=== PATIENT | female | born 1970 | race Two or more races ===

== ENCOUNTER 2016-09-26 10:05 | Emergency (ER) | payer SELFPAY ==
[2016-09-26 10:14] VITALS: BP 170/90; BMI 34.3
--- NOTE | 2016-09-26 10:20 | DR.NAUSEAF ---
HPI - Time Seen Time seen: 10:18 - Primary Care Physician Primary Care Physician: NFD - Complaints Chief Complaint Doctors Comments: Daughter reports that patient was in her usual state of health on last night except for being upset. They went to [place] yesterday to pick a car and enroute home had some prolems with one of the cars. Daughter reports that on last night patient became dizzy. This AM awakened with episode of vomiting and nausea. Chief Complaint:: PT C/O N/V AND MIGRAINE .. THAT STARTED THIS AM .. PT HAS VOMITTED UP 20 ML OF YELLOWISH VOMIT IT TRIAGE ... Self Treatment fo Chief Complaint: PT TAKES PHENERGAN BUT, SHE DOES WHENS SHE HAS MIGRAINES - Source History Provided: Patient - Mode of Arrival Mode of Arrival: Ambulatory - Timing Onset of Chief Complaint: 09/26/16 PMH - PMH Past Medical History: No Past Surgical History: No Surgical History: [employer] Surgery - Family History History of Family Medical Conditions: No - Social History Does patient currently use any type of tobacco product: No Have you used tobacco products in the last 12 months: No Type of Tobacco Use: None Does any household member use tobacco: No Alcohol Use: None Do you use any recreational Drugs:: No Lives With: Family Lives Where: Home - infectious screening In the last 2 months have you had wt loss of >10#?: NO Have you had fever, night sweats or hemotysis?: No Have you traveled outside the country in the last 6 months?: No Isolation: Standard ROS - Review of Systems Eyes: No Symptoms Reported ENTM: No Symptoms Reported Respiratoy: No Symptoms Reported Cardiovascular: No Symptoms Reported Genitourinary: No Symptoms Reported Neurological: No Symptoms Reported Musculoskeletal: No Symptoms Reported Integumentary: No Symptoms Reported Hematologic/Lymphatic: No Symptoms Reported Endocrine: No Symptoms Reported Psychiatric: No Symptoms Reported All Other Systems: Reviewed and Negative PE - Vital Signs Vitals: Temperature 170.9 F Pulse Rate 62 Respiratory Rate 18 Blood Pressure 170/90 O2 Sat by Pulse Oximetry 99 - General General Appearance: Lethargic - Head Head Exam: Normal Inspection - Eyes Eye exam: Normal Appearance, PERRL, EOMI - ENT ENT Exam: Normal Exam, Normal Oropharynx - Neck Neck Exam: Normal Inspection - Chest Chest Inspection: Normal Inspection - Respiratory Respiratory Exam: Normal Lung Sounds Bilat Respiratory Exam: Bilateral Clear to Auscultation - Cardiovascular Cardiovascular Exam: Regular Rate - Abdominal Exam Abdominal Exam: Normal Inspection Abdominal Tenderness: negative: RUQ, RLQ, LUQ, LLQ, Epigastrium, Suprapubic, Diffuse, Mild, Moderate, Severe, Other - Rectal Rectal Exam: Deferred - External Exam: Female: Deferred : Speculum Exam (Female): Deferred : Bimanual Exam (female): Deferred - Extremities Extremities Exam: Normal Inspection - Back Back Exam: Normal Inspection - Neurologic Neurological Exam: Alert, Oriented X3, CN II-XII Intact - Psychiatric Psychiatric Exam: Normal Affect, Normal Mood - Skin Skin Exam: Warm, Dry, Intact ROR - Labs Reviewed Result Diagrams: 09/26/16 10:35 09/26/16 10:35 Laboratory: WBC 8.0 X10^3/uL (3.6-10.0) 09/26/16 10:35 RBC 4.37 X10^6/uL (3.5-5.4) 09/26/16 10:35 Hgb 12.0 g/dL (12.0-16.0) 09/26/16 10:35 Hct 36.8 % (36.0-47.0) 09/26/16 10:35 MCV 84.3 fL (80.0-100.0) 09/26/16 10:35 MCH 27.6 pg (27.0-34.0) 09/26/16 10:35 MCHC 32.7 g/dL (33.0-35.0) L 09/26/16 10:35 RDW 14.2 % (11.6-16.5) 09/26/16 10:35 Plt Count 194 X10^3/uL (150.0-450.0) 09/26/16 10:35 MPV 10.6 fL (7.4-11.0) 09/26/16 10:35 Neut % 75.6 % (42.0-75.0) H 09/26/16 10:35 Lymph % 19.0 % (21.0-51.0) L 09/26/16 10:35 [place] % 4.5 % (0.0-13.0) 09/26/16 10:35 Eos % 0.5 % (0.9-2.9) L 09/26/16 10:35 Baso % 0.4 % (0.2-1.0) 09/26/16 10:35 Neut # 6.0 x10^3/uL (2.2-4.8) H 09/26/16 10:35 Lymph # 1.5 X10^3/uL (1.3-2.9) 09/26/16 10:35 [place] # 0.4 x10^3/uL (0.3-0.8) 09/26/16 10:35 Eos # 0.0 x10^3/uL (0.0-0.2) 09/26/16 10:35 Baso # 0.0 X10^3/uL (0.0-0.1) 09/26/16 10:35 Absolute Nucleated RBC 0.0 /100WBC 09/26/16 10:35 Sodium 136 mmol/L (136-145) 09/26/16 10:35 Corrected Sodium 137 mmol/L (136-145) 09/26/16 10:35 Potassium 3.9 mmol/L (3.5-5.1) 09/26/16 10:35 Chloride 105 mmol/L (98-107) 09/26/16 10:35 Carbon Dioxide 24.2 mmol/L (21-32) 09/26/16 10:35 BUN 9 mg/dL (7-18) 09/26/16 10:35 Creatinine 0.64 mg/dL (0.55-1.02) 09/26/16 10:35 Est GFR (MDRD) Af Amer > 60 (>60) 09/26/16 10:35 Est GFR (MDRD) Non-Af > 60 (>60) 09/26/16 10:35 Glucose 157 mg/dL (65-99) H 09/26/16 10:35 Calcium 8.4 mg/dL (8.5-10.1) L 09/26/16 10:35 Corrected Calcium TNP 09/26/16 10:35 Total Bilirubin 0.30 mg/dL (0.2-1.0) 09/26/16 10:35 AST 23 Units/L (15-37) 09/26/16 10:35 ALT 39 Units/L (12-78) 09/26/16 10:35 Alkaline Phosphatase 71 Units/L (46-116) 09/26/16 10:35 Total Protein 8.1 g/dL (6.4-8.2) 09/26/16 10:35 Albumin 3.8 g/dL (3.4-5.0) 09/26/16 10:35 Globulin 4.3 g/dL (2.5-4.5) 09/26/16 10:35 Albumin/Globulin Ratio 0.9 Ratio (1.1-2.1) L 09/26/16 10:35 - Diagnosis Discharge Problem: Nausea and vomiting in adult patient - Discharge Plan Condition: Stable - Follow ups/Referrals Follow ups/Referrals: NFD,None [Primary Care Provider] - 3 days - Instructions
[2016-09-26] MEDS ORDERED: NS 1000 ML 1,000 ML ONE (10:24)
[2016-09-26] MEDS ORDERED: ZOFRAN INJ 4 MG VIAL ONE (10:25)
[2016-09-26] MEDS ORDERED: NS 1000 ML 1,000 ML IV ONE (10:30)
[2016-09-26] MEDS ORDERED: ZOFRAN INJ 4 MG VIAL IVP ONE (10:30)
[2016-09-26 10:56] LABS: BASOPHILS % (AUTO) 0.4 % (0.2-1.0); EOSINOPHILS % (AUTO) 0.5 % (0.9-2.9); HEMATOCRIT 36.8 % (36.0-47.0); LYMPHOCYTES # (AUTO) 1.5 X10^3/uL (1.3-2.9); MEAN CORPUSCULAR HEMOGLOBIN 27.6 pg (27.0-34.0); MEAN CORPUSCULAR HGB CONC 32.7 g/dL (33.0-35.0); MEAN CORPUSCULAR VOLUME 84.3 fL (80.0-100.0); MEAN PLATELET VOLUME 10.6 fL (7.4-11.0); MONOCYTES # (AUTO) 0.4 x10^3/uL (0.3-0.8); MONOCYTES % (AUTO) 4.5 % (0.0-13.0); NEUTROPHILS % (AUTO) 75.6 % (42.0-75.0); PLATELET COUNT 194 X10^3/uL (150.0-450.0); RED BLOOD COUNT 4.37 X10^6/uL (3.5-5.4); RED CELL DISTRIBUTION WIDTH 14.2 % (11.6-16.5)
[2016-09-26 11:10] LABS: ALANINE AMINOTRANSFERASE 39 Units/L (12-78); ALBUMIN 3.8 g/dL (3.4-5.0); ALKALINE PHOSPHATASE 71 Units/L (46-116); ASPARTATE AMINO TRANSFERASE 23 Units/L (15-37); BLOOD UREA NITROGEN 9 mg/dL (7-18); CALCIUM 8.4 mg/dL (8.5-10.1); CARBON DIOXIDE 24.2 mmol/L (21-32); CHLORIDE 105 mmol/L (98-107); COR NA(FOR HYPERGLY) 137 mmol/L (136-145); CREATININE 0.64 mg/dL (0.55-1.02); GLUCOSE 157 mg/dL (65-99); SODIUM 136 mmol/L (136-145); TOTAL PROTEIN 8.1 g/dL (6.4-8.2); eGFR BLACK RACES > 60 (>60); eGFR NON BLACK RACES > 60 (>60)
[2016-09-26] MEDS ORDERED: ANTIVERT TAB 25 MG PO ONE (11:32)
[2016-09-26] MEDS ORDERED: ANTIVERT TAB 25 MG ONE (11:40)
== END 2016-09-26 12:24 | disposition home or self-care (01) ==
LOC: ER 10:22
DX: R11.2 Nausea with vomiting, unspecified (principal)
CPT/HCPCS: 36415; 80053; 85025; 96365; 96374; 99282; 99283; A4222; J2405